=== PATIENT | female | born 1995 | race Caucasian/White ===

== ENCOUNTER 2023-11-13 13:52 | Inpatient (IN) ==
[2023-11-13] MEDS ORDERED: Lidocaine 1% VIAL 10 MG/ML 30 ML VIAL INJ PRN (17:15)
[2023-11-13] MEDS ORDERED: Prochlorperazine 5 mg/ml 2 ml VIAL (10 mg) IV PRN (17:15)
[2023-11-13] MEDS ORDERED: Nalbuphine 10 MG/ML 1 ML VIAL IV PRN (17:15)
[2023-11-13] MEDS: Oxytocin in LR 20,000 MILLI.UNIT/1,000 ML BAG IV SCH (20:52)
[2023-11-13] MEDS: Lactated Ringers 1000 ml BAG 1,000 ML IV SCH (20:52)
[2023-11-13 20:56] LABS: ABS Lymphocytes 1.5 10^3/uL (1.0-4.8); ABS Monocytes 0.7 10^3/uL (0.0-0.9); ABS Neutrophils 5.8 10^3/uL (1.5-7.6); ABS Nucleated RBC 0.01 10^3/ul; Eosinophil % 0.5 %; Hematocrit 32.8 % (35-45); Hemoglobin 11.4 g/dL (11.5-14.3); Lymphocyte % 18.3 %; Mean Corpuscular Hemoglobin 30.5 pg (27-33); Mean Corpuscular Hgb Conc 34.9 g/dL (31-36); Mean Corpuscular Volume 87.6 fL (80-97); Mean Platelet Volume 10.7 fL (7.5-11.2); Nucleated Red Blood Cells % 0.1 %/100WBC (0.0-0.8); Platelet Count 191 10^3/uL (150-450); Red Blood Count 3.74 10^6/uL (3.63-4.92); Red Cell Distribution Width 13.7 % (12-17)
[2023-11-13 21:18] LABS: Albumin 3.4 g/dL (3.2-5.2); Albumin/Globulin Ratio 1.3 (1-3); Calcium 8.8 mg/dL (8.6-10.3); Creatinine, Serum 0.94 mg/dL (0.51-0.95); Globulin 2.6 g/dL (2-4); Potassium 4.3 mmol/L (3.5-5.0); Total Bilirubin 0.5 mg/dL (0.2-1.0); eGFR CKD-EPI 85.8 (>60)
[2023-11-13 21:38] LABS: Urine Benzodiazepine Screen None Detected (None Detect); Urine Cannabinoids Screen None Detected (None Detect); Urine Opiates Screen None Detected (None Detect)
[2023-11-13] MEDS: Lactated Ringers 1000 ml BAG 1,000 ML IV ONE (21:50)
[2023-11-13] MEDS ORDERED: Lidocaine 1.5% EPI 1:200,000 30 ML SDV ONE (21:54)
[2023-11-13] MEDS: Phenylephrine 40 mcg/mL 10mL (400mcg) SYRINGE IV PUSH PRN (22:36)
[2023-11-13] MEDS: OBEPIDURAL (200 ML) 200 ML EPIDURAL ONE (22:39)
[2023-11-13 22:40] LABS: HIV 4th Generation Nonreactive (Nonreactive)
[2023-11-13] MEDS ORDERED: Sodium Citrate/Citric Acid LIQ 15 ML UDC PO PRN (22:45)
[2023-11-13] MEDS ORDERED: Lactated Ringers 1000 ml BAG 1,000 ML IV ONE (22:45)
[2023-11-13] MEDS ORDERED: Phenylephrine 40 mcg/mL 10mL (400mcg) SYRINGE IV PUSH PRN (22:45)
[2023-11-13 23:40] LABS: Urine Appearance Clear; Urine Bilirubin Negative (Negative); Urine Blood 1+ (Negative); Urine Color Light-Yellow; Urine Glucose Negative (Negative); Urine Ketones Negative (Negative); Urine Nitrite Negative (Negative); Urine Protein Negative (Negative); Urine Specific Gravity 1.018 (1.002-1.030); Urine Urobilinogen Negative (Negative)
[2023-11-13 23:47] LABS: Urine Bacteria Absent /HPF (Absent); Urine Red Blood Cell 3+(>10/hpf) /HPF (0-Trace); Urine Squamous Epithelial Cell Present /HPF (Absent); Urine White Blood Cell Trace(0-5/hpf) /HPF (0-Trace)
[2023-11-14] MEDS: Lactated Ringers 1000 ml BAG 1,000 ML IV SCH (01:03)
[2023-11-14] MEDS ORDERED: Glycerin ADULT 2.4 gm SUPP PR PRN (01:36)
[2023-11-14] MEDS ORDERED: Calcium Carb (TUMS) 500 mg CHEW TAB PO PRN (01:38)
[2023-11-14] MEDS ORDERED: Lactated Ringers 1000 ml BAG 1,000 ML IV SCH (02:00)
[2023-11-14] MEDS: Buffered Lidocaine 1% SYRIN 1 ml INTRADERM ONE (04:13)
[2023-11-14] MEDS: OBEPIDURAL (200 ML) 200 ML EPIDURAL SCH (04:16)
[2023-11-15 08:44] LABS: ABS Eosinophils 0.1 10^3/uL (0.0-0.5); ABS Lymphocytes 2.6 10^3/uL (1.0-4.8); ABS Monocytes 0.7 10^3/uL (0.0-0.9); ABS Neutrophils 6.5 10^3/uL (1.5-7.6); ABS Nucleated RBC 0.02 10^3/ul; Eosinophil % 1.4 %; Hemoglobin 10.5 g/dL (11.5-14.3); Lymphocyte % 26.2 %; Mean Corpuscular Hemoglobin 31.1 pg (27-33); Mean Corpuscular Hgb Conc 34.9 g/dL (31-36); Mean Corpuscular Volume 89.2 fL (80-97); Mean Platelet Volume 10.8 fL (7.5-11.2); Nucleated Red Blood Cells % 0.2 %/100WBC (0.0-0.8); Platelet Count 151 10^3/uL (150-450); Red Blood Count 3.36 10^6/uL (3.63-4.92); Red Cell Distribution Width 13.4 % (12-17); White Blood Count 9.9 10^3/uL (3.8-11.8)
[2023-11-15] MEDS: Dibucaine 1% OINT 28.35 GM TUBE PR PRN (09:48)
[2023-11-15] MEDS: Witch Hazel PAD JAR TOPICAL PRN (09:48)
[2023-11-16 08:23] VITALS: BP 120/64
== END 2023-11-16 14:00 | disposition home or self-care (01) | DRG 560 ==
LOC: MCHOBOUT 13:52 → MCHOB 17:47
PROVIDERS: ADMIT Obstetrics & Gynecology; ATTEND Registered Nurse